=== PATIENT | female | born 2005 | race Two or more races ===

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

== ENCOUNTER 2023-04-17 06:48 | Outpatient (CLI) | payer OTHER ==
[2023-04-17 07:53] LABS: HEMATOCRIT 40.7 % (36.0-45.00); MEAN CELL VOLUME 85.5 fL (80.00-100.00); MEAN CORPUSCULAR HEMOGLOBIN 29.4 pg (27.00-32.0); MEAN CORPUSCULAR HGB CONC 34.3 g/dl (32.0-36.0); PLATELET COUNT 250 K/uL (150-450); RED BLOOD COUNT 4.76 M/uL (4.00-6.00); RED CELL DISTRIBUTION WIDTH 13.7 % (11.5-14.5)
[2023-04-17 08:04] LABS: ERYTHROCYTE SEDIMENTATION RATE 4 mm/hr
[2023-04-17 08:32] LABS: ALBUMIN 4.4 gm/dL (3.4-5.0); ALKALINE PHOSPHATASE 61 U/L (50-136); ALT/SGPT 18 U/L (12-78); ANION GAP 10 (10.0-20.0); AST/SGOT 11 U/L (15-37); BILIRUBIN TOTAL 0.62 mg/dL (0.3-1.2); BLOOD UREA NITROGEN 8 mg/dL (7-18); BUN CREA RATIO 13 (7.0-25.0); CALCIUM 9.5 mg/dL (8.5-10.1); CARBON DIOXIDE 28 mEq/L (21-32); CHLORIDE 104 mmol/L (98-107); CREATININE SERUM 0.64 mg/dL (0.55-1.02); GLOBULINA 3.1 G/DL (2.4-3.5); GLUCOSE FASTING 93 mg/dL (65-100); OSMOLALITY SERUM 274 MOSM/KG (275-295); POTASSIUM 3.84 mEq/L (3.5-5.1); SODIUM 138 mmol/L (136-145); TOTAL PROTEIN 7.5 gm/dL (6.4-8.2)
[2023-04-17 08:33] LABS: C-REACTIVE PROTEIN < 0.29 MG/DL (0.00-0.29)
== END 2023-04-17 23:00 | disposition home or self-care (01) ==
LOC: LAB 06:48
DX: K50.80 Crohn's disease of both small and large intestine without complications (principal)

== ENCOUNTER 2024-03-27 11:56 | Emergency (ER) | payer OTHER ==
[~2024-03-27] VITALS: Ht 152.4 cm; Wt 61.7 kg
[2024-03-27] MEDS ORDERED: LIALDA1.2 GM (13:02)
[2024-03-27] MEDS ORDERED: FAMOtidine 10 MG/ML (4ML VIAL) IV ONE (13:30)
[2024-03-27] MEDS ORDERED: ONDANSETRON HCL 2 MG/ML VIAL IV ONE (13:30)
[2024-03-27] MEDS ORDERED: GUAIFENESIN 200 MG/10 ML BLIST.PACK PO ONE (13:30)
[2024-03-27 13:45] LABS: HEMATOCRIT 40.8 % (36.0-45.00); HEMOGLOBIN 14.3 g/dL (12.0-15.00); MEAN CORPUSCULAR HEMOGLOBIN 29.4 pg (27.00-32.0); PLATELET COUNT 191 K/uL (150-450); RED BLOOD COUNT 4.86 M/uL (4.00-6.00); RED CELL DISTRIBUTION WIDTH 13.8 % (11.5-14.5)
[2024-03-27] MEDS ORDERED: PEPCID AC20 MG PO (14:19)
[2024-03-27] MEDS ORDERED: AZITHROMYCIN250 MG PO (14:19)
== END 2024-03-27 14:26 | disposition home or self-care (01) ==
LOC: ER 11:57
PROVIDERS: General Practice
DX: J00 Acute nasopharyngitis [common cold] (principal); Z20.822 Contact with and (suspected) exposure to COVID-19; Z88.9 Allergy status to unspecified drugs, medicaments and biological substances